=== PATIENT | female | born 1980 | race Caucasian/White ===

== ENCOUNTER → 2016-06-10 | Day surgery (SDC) | payer BC ==
[~2016-06-10] VITALS: Ht 172.7 cm; Wt 66.7 kg
[2016-06-10] VITALS (10 sets, daily range): BP systolic 102–135; BP diastolic 56–80
[~2016-06-10] MED LIST: Bacitracin 50000 Units Vial ONE; Bacitracin Oint 15gm Tube TOPIC ONE; Dexamethasone 4mg/ml vial ONE; DiphenhydrAMINE 50mg/ml Inj IVP PRN; EPINEPHrine 1mg/1ml Amp ONE; Glycopyrrolate 0.2mg/ml 1ml Vial ONE; Hydromorphone 0.5mg/0.5ml inj IVP PRN; Ketorolac 30mg Inj IV PRN; Ketorolac 30mg Inj ONE; LORazepam Inj 2mg/ml 1ml IV PRN; LR 1000ml 1,000 ML IVLG SCH; LR 1000ml ONE; Labetalol 5mg/ml 20ml vial IV PRN; Lidocaine 0.5% Epi 50 mL Vial ONE; Lidocaine 1% 10mg/ml/Epi 0.005mg/ml 30ml vial INJ ONE; Lidocaine 1% MPF 10mg/ml 5ml ONE; Metoclopramide 10mg/2ml Inj IVP PRN; Metoclopramide 10mg/2ml Inj ONE; Midazolam 2mg/2ml Inj IVP PRN; Midazolam 2mg/2ml Inj ONE; Muri-Lube ONE; NKM; NS Irrig 1000ml IRRIG ONE; NS Irrig 1000ml ONE; Neostigmine 1mg/ml 10ml Inj ONE; Nitroglycerin 2% oint pkt TOPIC ONE; Propofol 10mg/ml 20ml IV ONE; Sterile Water Irrig 1000ml IRRIG ONE; TESTOSTERONE PO; Zemuron 50mg/5ml Inj IV ONE; ceFAZolin 2gm/50ml Premix 50 ML IVPB ONE; fentaNYL 100 mcg/2 mL IV PRN; fentaNYL 250mcg/5ml ONE
--- NOTE | 2016-06-10 06:56 | Anethesia Preoperative Eval ---
Anesthesia Pre-op PMH/ROS General Date of Evaluation: Jun 10, 2016 Anesthesiologist: Delta ASA Score: ASA 2 Mallampati Score Class I : Soft palate, uvula, fauces, pillars visible Class II: Soft palate, uvula, fauces visible Class III: Soft palate, base of uvula visible Class IV: Only hard plate visible Mallampati Classification: Class I Surgeon: Emily Diagnosis: Gender dysmorphia Surgical Procedure: Bilateral breast reduction and nipple reconstruction Anesthesia History: none Social History: smoking - quit 2008 Family History: no anesthesia problems Allergies: Coded Allergies: No Known Allergies (Unverified , 06/09/16) Medications: see eMAR Past Medical History Cardiovascular: Denies: CAD, HTN, NE, arrhythmia, other, valve dz Pulmonary: Denies: COPD, UBALDO, asthma, other Gastrointestinal/Genitourinary: Denies: CRI, ESRD, GERD, other Neurologic/Psychiatric: Reports: other - migraines, Denies: CVA, TIA, dementia, depression/anxiety Endocrine: Denies: DM, hypothyroidism, other, steroids HEENT: Denies: [place] (L), [place] (R), cataract (L), cataract (R), glaucoma, other Hematology/Immune: Denies: DVT, anemia, bleeding disorder, other Musculoskeletal/Integumentary: Denies: DDD, DJD, OA, RA, edema, other PSxH Narrative: Graff teeth extraction Anesthesia Pre-op Phys. Exam Physician Exam Last Vital Signs Date Time Temp Pulse Resp B/P Pulse Ox O2 Delivery O2 Flow Rate FiO2 06/10/16 05:50 97.7 82 20 118/78 97 Room Air Constitutional: NAD Cardiovascular: RRR Respiratory: CTA Airway Exam Mallampati Score: Class I MO: full ROM: full Teeth: intact Anesthesia Pre-op A/P Labs Chemistry Test 06/10/16 06:10 Human Chorionic Gonadotropin, Qual Pending Serum Test Test 06/10/16 06:10 Human Chorionic Gonadotropin, Qual Pending Studies Pre-op Studies: EKG - sr Risk Assessment & Plan Assessment: ASA II Plan: GA-ETT, PONV prophylaxis Status Change Before Surgery: No Pre-Antibiotics Drug: Ancef 1g Given Within 1 Hr of Incision: Yes MAYO GUZMÁN M.D. Jun 10, 2016 06:56
--- NOTE | 2016-06-10 09:39 | Immediate Post-Op Evaluation ---
Immediate Post-Op Evalulation Immediate Post-Op Evalulation Procedure: Breast Masculinization surgery and free nipple grafts Date of Evaluation: Jun 10, 2016 Time of Evaluation: 14:37 IV Fluids: 2.6L Blood Products: 0 Estimated Blood Loss: 0 Urinary Output: 0 Blood Pressure Systolic: 109 Blood Pressure Diastolic: 60 Pulse Rate: 84 Respiratory Rate: 16 O2 Sat by Pulse Oximetry: 100 Temperature (Fahrenheit): 97.9 Pain Score (1-10): 0 Nausea: No Vomiting: No Complications 0 Patient Status: awake, reacts, patent, none Hydration Status: adequate Drug: Ancef 1g Given Within 1 Hr of Incision: Yes Time Given: 08:00 MAYO GUZMÁN M.D. Jun 10, 2016 09:39
--- NOTE | 2016-06-10 09:40 | 48 Hour Post Anesthesia Eval ---
Post Anesthesia Evaluation Procedure: Breast Masculinization surgery and free nipple grafts Date of Evaluation: Jun 10, 2016 Time of Evaluation: 15:50 Blood Pressure Systolic: 127 0: 78 Pulse Rate: 98 Respiratory Rate: 16 Temperature (Fahrenheit): 98.1 O2 Sat by Pulse Oximetry: 98 Airway: patent Nausea: No Vomiting: No Pain Intensity: 2 Hydration Status: adequate Cardiopulmonary Status: at baseline Mental Status/LOC: patient returned to baseline Post-Anesthesia Complications: 0 Follow-up care needed: ready to discharge MAYO GUZMÁN M.D. Jun 10, 2016 09:40
--- NOTE | 2016-06-13 11:23 | Brief Operative Note ---
Immediate Post Operative Note Operative Note Pre-op Diagnosis: Gender Dysphoria with bilateral Macromastia Procedure: Female to Male Top Surgery with double incision and free nipple grafts Post-op Diagnosis: same as pre-op Surgeon: Jude Diaz MD Barrel Rifler Hook: Gely LUJAN Anesthesiologist: Tessa Anesthesia: general Specimen: yes Complications: none Condition: stable Fluids: Per anesthesia records. Estimated Blood Loss: minimal Drains: ANASTACIO Implant(s) used?: No JUDE DIAZ Jun 13, 2016 11:23
--- NOTE | 2016-06-13 20:58 | Operative Note - Dictated ---
DATE OF OPERATION: 06/10/2016 SURGEON: Jude Diaz M.D. LUNCHROOM MONITOR: Goldy Solis ANESTHESIOLOGIST: Dr. Zarate. PREOPERATIVE DIAGNOSIS: Gender dysphoria with bilateral macromastia. POSTOPERATIVE DIAGNOSIS: Gender dysphoria with bilateral macromastia. OPERATION: Female to male Top surgery with double incision and free nipple-areolar graft. ANESTHESIA: General endotracheal anesthesia. OPERATIVE INDICATIONS: This is a 36-year-old patient who presented for transitioning surgery. He has been transitioning for years and has been on testosterone and under the care of a therapist as well as the medical doctor for testosterone prescriptions and laboratory measurements. He wishes to continue transitioning with chest masculinization surgery. He was seen in consultation and was noted to have large breasts with bilateral breast ptosis and breast asymmetry with the left being slightly larger than the right. An operative plan was devised which consisted of breast removal using a double incision technique and free nipple grafts to a more normal male size and positioning. Once he was medically cleared, he was scheduled for elective surgery. OPERATIVE PROCEDURE: The patient was seen in the preoperative area and the operative plan was then discussed and agreed upon. Operative markings were made and an IV was placed. He was taken back to the operating room. The patient was placed on the operating table in supine position and once the SCDs were placed on bilateral extremities, general anesthesia was induced and all pressure points were padded and then his chest and abdomen were prepped and draped in the usual sterile fashion. Beginning on the left side, 25 mL of 0.5% lidocaine with 1:200,000 epinephrine was injected along the incision line and then using 20 mL syringe top, the new areolar size was marked on its [place]. This incision was then made and the nipple-areolar complex was removed en bloc and taken off the field for later grafting. At this point, a #10 blade was used to make the incisions that were marked preoperatively. Dissection proceeded down to the pectoralis fascia and a superior skin subcutaneous flap was made to expose the majority of the breast parenchyma. The breast on the left side was then removed en bloc with skin intact and taken off the field. Preliminary tailor-tacking was performed and some contour modifications were made to achieve more pleasing contour. At this point, attention was turned to the right side where similar technique was performed after having injected 30 mL of 0.5% lidocaine with 1:200,000 epinephrine. Once this breast was removed as well, the area was tailor-tacked and the patient was sat up, and some areas of further modification for contour were made to achieve better symmetry. The patient was then laid back down and the dariel were removed and the pockets were irrigated with antibiotic solution and hemostasis was carefully obtained. A 10-[place] flat ANASTACIO drain was passed through a separate incision in the axilla and secured to the skin with 3-0 nylon. These incisions were then closed with 2-0 PDS in the Abiel fascial layer followed by 3-0 Vicryl and superficial parenchymal layer followed by 3-0 Monocryl in deep dermis and 4-0 Monocryl in running subcuticular fashion. The nipple-areolar flaps were then thinned to acceptable thickness on the back table and readied for grafting. The patient at this point was sat up completely with arms at the sides and the area for the new areolas were marked with 20 mL syringe top. These were visually confirmed as well as with measurements. He was then laid back down and a #15 blade was used to incise these markings. The skin was de-epithelialized and then epinephrine soaked Ray-Caleb was placed onto it for hemostasis. Once this hemostasis was obtained, the grafts were sutured into place at 12, 3, 6, and 9 o'clock positions with 5-0 and then 5-0 Monocryl was used in running subcuticular fashion to suture them in. Once this was completed, the tie-over bolster of Xeroform and cotton balls was placed on both nipple grafts and secured at 4 positions. Steri-Strips were then placed on the incisions followed by compression foam and a compression vest. The patient was then extubated and but prior to this, a Nunez catheter which was placed sterilely at the beginning the procedure was removed. The patient was then extubated and taken to the recovery room in stable condition. There were no complications. ESTIMATED BLOOD LOSS: Minimal. URINE OUTPUT: A 600 mL. DRAINS: The patient has two ANASTACIO drains. SPECIMENS: Sent to pathology. The total weight was 475 g on the left side and 430 g on the right side. The patient is stable. Jude Diaz M.D. DR: Shabnam JOB#: [id number] CC:
== END | disposition home or self-care (01) ==
LOC: SUR 05:10
DX: F64.0 Transsexualism (principal); N62 Hypertrophy of breast; G43.909 Migraine, unspecified, not intractable, without status migrainosus; M85.80 Other specified disorders of bone density and structure, unspecified site
CPT/HCPCS: 19318; 36415; 84703; J0171; J0690; J1100; J1170; J1885; J2250; J2405; J2704; J2710; J2765; J3010; J7120; 94003; 94150